=== PATIENT | male | born 1995 | race Caucasian/White ===

== ENCOUNTER 2022-12-13 18:07 | Inpatient (IN) | payer SELFPAY ==
[~2022-12-13] VITALS: Ht 175 cm; Wt 77.0 kg
[2022-12-13 18:27] VITALS: BP 151/99
[2022-12-13 18:57] LABS: BASO % 0.2 % (0.0-1.0); EOS % 0.2 % (1.0-4.0); HEMATOCRIT 41.7 % (42.0-52.0); LYMPH # 0.8 10*3/uL (1.3-4.4); LYMPH % 18.5 % (27.0-41.0); MEAN CELL VOLUME 92.9 fl (80.0-94.0); MEAN CORPUSCULAR HGB 32.5 pg (27.0-31.0); MONO # 0.3 10*3/uL (0.1-1.0); MONO % 7.5 % (3.0-9.0); NEUT # 3.1 10*3/uL (2.3-7.9); NEUT % 73.4 % (47.0-73.0); PLATELET COUNT AUTOMATED 56 10*3/uL (130-400); RED BLOOD COUNT 4.49 10*6/uL (4.50-5.90); RED CELL DISTRI WIDTH 11.7 % (0-14.5); WHITE BLOOD COUNT 4.2 10*3/uL (4.8-10.8)
[2022-12-13 19:30] LABS: ALKALINE PHOSPHATASE 57 U/L (46-116); BUN 5 mg/dl (9-23); CHLORIDE 98 mmol/L (98-107); POTASSIUM 3.5 mmol/L (3.4-5.1); SGPT/ALT 152 U/L (10-49); TOTAL PROTEIN 7.1 gm/dL (6.0-8.0)
[2022-12-13 20:00] VITALS: BP 119/85
[2022-12-13 21:20] LABS: LIPASE 59 U/L (12-53)
[2022-12-14 07:30] LABS: HEMATOCRIT 38.5 % (42.0-52.0); MEAN CELL VOLUME 95.1 fl (80.0-94.0); MEAN CORPUSCULAR HGB 32.8 pg (27.0-31.0); MEAN CORPUSCULAR HGB CONC 34.5 g/dl (33.0-37.0); MEAN PLATELET VOLUME 11.1 fl (9.6-12.3); PLATELET COUNT AUTOMATED 45 10*3/uL (130-400); RED BLOOD COUNT 4.05 10*6/uL (4.50-5.90); RED CELL DISTRI WIDTH 11.8 % (0-14.5); WHITE BLOOD COUNT 3.9 10*3/uL (4.8-10.8)
[2022-12-14 08:00] VITALS: BP 136/94
[2022-12-14 08:03] LABS: ALKALINE PHOSPHATASE 49 U/L (46-116); BUN 6 mg/dl (9-23); CHLORIDE 99 mmol/L (98-107); POTASSIUM 3.4 mmol/L (3.4-5.1); SGPT/ALT 115 U/L (10-49); TOTAL PROTEIN 6.2 gm/dL (6.0-8.0)
[2022-12-14 08:06] LABS: VITAMIN D, 25-HYDROXY 5.9 ng/mL (30-100)
[2022-12-14 08:23] LABS: MANUAL DIFF REFLEX YES
[2022-12-14 08:26] LABS: TOTAL CELLS COUNTED 100 #CELLS
[2022-12-14 08:27] LABS: PLATELET SUFFICIENCY LOW (NORMAL)
[2022-12-14 12:00] VITALS: BP 133/90
[2022-12-14 16:00] VITALS: BP 145/90
[2022-12-14 18:15] VITALS: BP 131/94
[2022-12-14 20:00] VITALS: BP 119/85
[2022-12-14 22:00] VITALS: BP 94/64
[2022-12-15] VITALS (12 sets, daily range): BP systolic 93–106; BP diastolic 56–78
[2022-12-15 06:36] LABS: BASO % 0.5 % (0.0-1.0); EOS # 0.1 10*3/uL (0.0-0.4); EOS % 3.3 % (1.0-4.0); HEMATOCRIT 38.9 % (42.0-52.0); LYMPH % 26.3 % (27.0-41.0); MEAN CELL VOLUME 94.6 fl (80.0-94.0); MEAN CORPUSCULAR HGB 32.8 pg (27.0-31.0); MEAN CORPUSCULAR HGB CONC 34.7 g/dl (33.0-37.0); MEAN PLATELET VOLUME 11.7 fl (9.6-12.3); MONO # 0.3 10*3/uL (0.1-1.0); MONO % 8.1 % (3.0-9.0); NEUT # 2.4 10*3/uL (2.3-7.9); NEUT % 61.5 % (47.0-73.0); PLATELET COUNT AUTOMATED 61 10*3/uL (130-400); RED BLOOD COUNT 4.11 10*6/uL (4.50-5.90); RED CELL DISTRI WIDTH 11.6 % (0-14.5)
[2022-12-15 06:54] LABS: ALKALINE PHOSPHATASE 52 U/L (46-116); BUN 7 mg/dl (9-23); CHLORIDE 101 mmol/L (98-107); POTASSIUM 3.4 mmol/L (3.4-5.1); SGPT/ALT 116 U/L (10-49); TOTAL PROTEIN 6.3 gm/dL (6.0-8.0)
[2022-12-16] VITALS (9 sets, daily range): BP systolic 93–118; BP diastolic 48–77
[2022-12-16 02:17] LABS: URINE AMPHETAMINES Negative (1000ng/ml); URINE BARBITURATES Negative (200ng/ml); URINE BENZODIAZEPINES Negative (200ng/ml); URINE CANNABINOIDS (THC) Negative (50ng/ml); URINE COCAINE Negative (300ng/ml); URINE METHADONE Negative (300ng/ml); URINE OPIATES Negative (300ng/ml); URINE PHENCYCLIDINE Negative (25ng/ml)
[2022-12-16 06:29] LABS: BASO % 0.5 % (0.0-1.0); EOS # 0.2 10*3/uL (0.0-0.4); EOS % 3.2 % (1.0-4.0); LYMPH # 1.6 10*3/uL (1.3-4.4); LYMPH % 25.3 % (27.0-41.0); MEAN CELL VOLUME 93.7 fl (80.0-94.0); MEAN CORPUSCULAR HGB 32.6 pg (27.0-31.0); MEAN CORPUSCULAR HGB CONC 34.8 g/dl (33.0-37.0); MONO # 0.6 10*3/uL (0.1-1.0); MONO % 10.4 % (3.0-9.0); NEUT # 3.7 10*3/uL (2.3-7.9); NEUT % 60.1 % (47.0-73.0); RED BLOOD COUNT 4.27 10*6/uL (4.50-5.90); RED CELL DISTRI WIDTH 11.5 % (0-14.5); WHITE BLOOD COUNT 6.2 10*3/uL (4.8-10.8)
[2022-12-16 06:30] LABS: PLATELET COUNT AUTOMATED 88 10*3/uL (130-400)
[2022-12-16 07:01] LABS: BUN 6 mg/dl (9-23); CHLORIDE 101 mmol/L (98-107); POTASSIUM 3.7 mmol/L (3.4-5.1)
[2022-12-17] VITALS: BP 137/86
[2022-12-17 04:00] VITALS: BP 140/74
[2022-12-17 06:08] LABS: BASO % 0.5 % (0.0-1.0); EOS # 0.1 10*3/uL (0.0-0.4); EOS % 1.7 % (1.0-4.0); HEMATOCRIT 40.1 % (42.0-52.0); LYMPH # 1.5 10*3/uL (1.3-4.4); LYMPH % 23.4 % (27.0-41.0); MEAN CELL VOLUME 93.5 fl (80.0-94.0); MEAN CORPUSCULAR HGB 32.6 pg (27.0-31.0); MEAN CORPUSCULAR HGB CONC 34.9 g/dl (33.0-37.0); MEAN PLATELET VOLUME 11.6 fl (9.6-12.3); MONO # 0.9 10*3/uL (0.1-1.0); MONO % 13.7 % (3.0-9.0); NEUT # 3.8 10*3/uL (2.3-7.9); NEUT % 60.2 % (47.0-73.0); RED BLOOD COUNT 4.29 10*6/uL (4.50-5.90); RED CELL DISTRI WIDTH 11.8 % (0-14.5); WHITE BLOOD COUNT 6.3 10*3/uL (4.8-10.8)
[2022-12-17 06:28] LABS: PLATELET COUNT AUTOMATED 131 10*3/uL (130-400)
[2022-12-17 07:23] LABS: BUN 6 mg/dl (9-23); CHLORIDE 102 mmol/L (98-107); POTASSIUM 3.6 mmol/L (3.4-5.1)
[2022-12-17 08:00] VITALS: BP 134/93
[2022-12-17 12:00] VITALS: BP 136/88
[2022-12-17 16:00] VITALS: BP 132/81
[2022-12-17 20:00] VITALS: BP 136/93
[2022-12-18] VITALS: BP 121/80
[2022-12-18 06:32] LABS: ALKALINE PHOSPHATASE 50 U/L (46-116); BUN 6 mg/dl (9-23); CHLORIDE 105 mmol/L (98-107); SGPT/ALT 112 U/L (10-49); TOTAL PROTEIN 6.5 gm/dL (6.0-8.0)
[2022-12-18 08:00] VITALS: BP 115/75
[2022-12-18] MEDS ORDERED: PROPRANOLOL HCL10 MG PO (11:00)
[2022-12-18] MEDS ORDERED: TAB-A-VITE TA400 MCG PO (11:00)
[2022-12-18] MEDS ORDERED: ATARAX,VISTARIL50 MG PO (11:00)
[2022-12-18 12:00] VITALS: BP 124/72
== END 2022-12-18 15:30 | disposition home or self-care (01) | DRG 897 ==
LOC: ED 18:07 → EDHOLD 18:52 → 4E 18:52 → ICCU 18:52 → 4E 21:13 → ICCU 12-14 18:23 → 4E 12-17 21:10
PROVIDERS: Family Medicine; Internal Medicine; Physician Assistant Medical; ADMIT Internal Medicine; ATTEND Internal Medicine
DX: F10.29 Alcohol dependence with unspecified alcohol-induced disorder (principal); F32.0 Major depressive disorder, single episode, mild; F41.9 Anxiety disorder, unspecified; K21.9 Gastro-esophageal reflux disease without esophagitis; D72.819 Decreased white blood cell count, unspecified; D75.89 Other specified diseases of blood and blood-forming organs; D69.6 Thrombocytopenia, unspecified; R73.9 Hyperglycemia, unspecified; R74.01 Elevation of levels of liver transaminase levels; R63.4 Abnormal weight loss; E55.9 Vitamin D deficiency, unspecified; Z81.1 Family history of alcohol abuse and dependence; Z68.25 Body mass index [BMI] 25.0-25.9, adult

== ENCOUNTER → 2023-01-03 | Outpatient (CLI) | payer SELFPAY ==
[~2023-01-03] MED LIST: ATARAX,VISTARIL50 MG PO; PROPRANOLOL HCL10 MG PO; TAB-A-VITE TA400 MCG PO
== END | disposition home or self-care (01) ==
LOC: RESCLI 09:07
PROVIDERS: ATTEND Internal Medicine
DX: Z23 Encounter for immunization (principal); K21.9 Gastro-esophageal reflux disease without esophagitis; F41.9 Anxiety disorder, unspecified; F32.A Depression, unspecified